=== PATIENT | male | born 1980 | race Caucasian/White ===

== ENCOUNTER → 2019-01-24 | Outpatient (CLI) | payer OTHER ==
[~2019-01-24] VITALS: Ht 175.3 cm; Wt 90.7 kg
[~2019-01-24] MED LIST: ALEVE220 MG PO; ASPIR 8181 MG PO; TOPROL XL25 MG PO; UNICOMPLEX M TA1 TA1 PO
[2019-01-24 09:03] VITALS: BP 120/86
--- NOTE | 2019-01-24 09:12 | EKG ---
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 TILLMAN : 1980 Requested By: Gregorio Santos Order Number: [id number] MD: Kayode Winter Measurements Intervals [place] Rate: 79 P: 59 VT: 164 QRS: -5 QRSD: 95 T: 35 QT: 365 QTc: 419 Interpretive Statements Sinus rhythm Poor R wave progression No previous ECG available for comparison Electronically Signed On 01-24-2019 9:12:30 CDT by Kayode Winter [email or web address] ��������������������������������������������� <ELECTRONICALLY SIGNED> ���������������������������������������� By: Kayode Winter MD, [facility] ��������������������������������������������� 01/24/19 0912 0850 0850 Kayode Winter MD, FACC /EPI
[2019-01-24 09:44] LABS: ABSOLUTE NEUTROPHILS 8.4 thou/uL (1.4-8.2); BASOPHILS 0.5 % (0.0-2.0); EOSINOPHILS 1.7 % (0.0-3.0); HEMOGLOBIN 15.4 gm/dL (14.0-18.0); LYMPHOCYTES 20.5 % (24.0-44.0); MCH 30.2 pg (26.0-34.0); MCHC 34.2 g/dL (28.0-37.0); MCV 88.2 fL (80.0-100.0); MONOCYTES 7.3 % (1.0-8.0); PLATELET COUNT 174 thou/uL (150-400); RDW 14.1 % (10.5-14.5)
--- NOTE | 2019-01-25 14:27 | CATHLAB ---
[facility] [address] [place] [address] INVASIVE PROCEDURE REPORT Name: RG SOUZA JR Room #: REG Bruno#: [id number] ������������� Admission: 01/24/19 ������������� Attend Phys: Gregorio Fuentes Discharge: ��� ������������� ��� Date of : 78 Date of Service: 01/25/19 1427 �� Report #: [id number] �������� ��������������������������������������������[id number] THIS REPORT FOR: //name// APPROVED REPORT Study performed: 01/24/2019 08:55:19 Patient Details Patient Status: Out-Patient Room #: The patient is a 38 year-old male Event Personnel Gregorio Santos Cotton Picking Machine Operator, Melinda Lebron RN RN, Linda Del Valle RT(R)() Jina Qiu David Monitor, Hernan Hightower Monitor Procedures Performed Left Heart Cath w/or w/o Coronaries [id number] [facility] supervision of conscious sedation Indication Positive stress test, Chest pain Procedure Narrative The patient was brought electively to the Cardiac Catheterization Laboratory and was prepped and draped in a sterile manner. The Right Groin^ was infiltrated with 1% Lidocaine subcutaneous anesthesia. A PINNACLE 6FR Sheath #[id number] sheath was inserted into the RFA^. Coronary angiography was performed using coronary diagnostic catheters. The right coronary system was accessed and visualized with a JR4 catheter. The left coronary system was accessed and visualized with a JL4 catheter. The left ventricle was accessed and visualized with a PIGTAIL catheter. Left ventricular/Aortic Valve gradient assessed via catheter pullback. Closure device was deployed with a 6 Fr Mynx. The patient tolerated the procedure well and there were no complications associated with the procedure. There was no hematoma. Intraoperative Conscious Sedation Sedation start time: 1009 Case end Time: 1035 Versed 3.0 mg Fluoro Time: 2.39 minutes Dose: DAP 2797.50 cGycm2 424 mGy [facility] [employer] [place] [address] INVASIVE PROCEDURE REPORT Name: RG SOUZA Room #: REG Bruno#: [id number] ������������� Admission: 01/24/19 ������������� Attend Phys: Gregorio Fuentes Discharge: ��� ������������� ��� Date of : 78 Date of Service: 01/25/19 1427 �� Report #: [id number] �������� ��������������������������������������������[id number] Contrast Type and Amount: Omnipaque 60 ml Coronary Angiography The patient's coronary anatomy is right dominant. Diagnostic Cath Left Main moderate to large caliber normal origin bifurcates left anterior descending left circumflex and the ramus intermedius. Free of high-grade disease LAD Moderate caliber type III vessel which courses in the anterior interventricular sulcus with luminal irregularities. And terminates as a bifurcating vessel and the posterior aspect of the left ventricle. No high-grade lesions are noticed in its course as a gives rise to septal and diagonal branches but mild luminal irregularities are present Diagonal 1 Small to moderate caliber vessel free of high-grade disease Circumflex Small caliber burden nondominant vessel without obstructive lesions noted Right Coronary Bur vessel of normal origin and caliber. Courses in the AV groove giving rise to a small to moderate caliber RV marginal branch free of high-grade disease. The continues on to the crux of the artery gives rise to posterior descending artery which is small in caliber and free of disease Ramus moderate Caliber vessel courses in the lateral aspect of the heart giving rise to branches as it courses towards the apex. His luminal irregularities but no high-grade lesions are present. Hemodynamics The aortic pressure is 143/86 mmHg with a mean of 116 mmHg. The left ventricular pressure is 117/14 mmHg with a mean of mmHg. The left ventricular end diastolic pressure is 28 mmHg. Conclusion 1. Mild coronary artery disease with luminal irregularities noted 2. Normal hemodynamics Recommendations Cardiac Risk Reduction Program Medical Therapy ��������������������������������������������� <ELECTRONICALLY SIGNED> ���������������������������������������� By: Gregorio Santos MD ��������������������������������������������� 01/25/19 1427 1427 1427 Gregorio Santos MD /INF
== END | disposition home or self-care (01) ==
LOC: CATH 06:29
PROVIDERS: Internal Medicine
DX: I25.10 Atherosclerotic heart disease of native coronary artery without angina pectoris (principal); I10 Essential (primary) hypertension; K21.9 Gastro-esophageal reflux disease without esophagitis; F17.210 Nicotine dependence, cigarettes, uncomplicated; Z98.890 Other specified postprocedural states; Z79.82 Long term (current) use of aspirin; Z79.899 Other long term (current) drug therapy